=== PATIENT | male | born 1955 | race Caucasian/White ===

== ENCOUNTER 2016-11-23 16:43 | Observation (INO) | payer OTHER ==
[~2016-11-23] VITALS: Ht 182.9 cm; Wt 101.0 kg
[~2016-11-23 16:43] MED LIST: ASPI-496 PO; ASPI-515 PO; ASPI325T80 PO; ATOR80TA75 PO; ENOX100S5 SQ; ENOX80SY4 SQ; HYDR-3241 PO; METO25TA91 PO; NIFE60TA11 PO; OMEP20CA14 PO; WARF5TAB PO
[2016-11-23 18:25] VITALS: BP 129/82
[2016-11-23] MEDS: PLEASE ENTER HEIGHT AND WEIGHT MC SCH (18:30)
[2016-11-23 18:41] LABS: BLOOD UREA NITROGEN 19 mg/dL (7-18)
[2016-11-23] MEDS ORDERED: BUPIVACAINE/PF-EPI 0.5% 1:200K ONE (18:49)
[2016-11-23] MEDS ORDERED: THROMBIN 20,000 UNIT VIAL TP ONE ×2 (18:50→21:05)
[2016-11-23] MEDS ORDERED: HEPARIN 1,000 UNITS/ML, 30ML ONE (18:50)
[2016-11-23] MEDS ORDERED: PROTAMINE SULFATE 10 MG/ML, 5ML ONE (18:51)
[2016-11-23] MEDS ORDERED: BACITRACIN 50,000 UNIT ONE (18:51)
[2016-11-23] MEDS ORDERED: PAPAVERINE 30 MG/ML, 2ML ONE (18:52)
[2016-11-23] MEDS ORDERED: SODIUM CHLORIDE 0.9% 1,000 ML IV SCH (19:00)
[2016-11-23] MEDS ORDERED: FENTANYL PF 250 MCG/5ML ONE (20:08)
[2016-11-23] MEDS ORDERED: MIDAZOLAM 1 MG/ML, 2ML ONE (20:09)
[2016-11-23] MEDS ORDERED: ONDANSETRON 2MG/ML, 2ML ONE ×2 (20:12→22:58)
[2016-11-23] MEDS ORDERED: PROPOFOL 10 MG/ML, 20ML ONE (20:12)
[2016-11-23] MEDS ORDERED: ROCURONIUM 10 MG/ML ONE (20:12)
[2016-11-23] MEDS ORDERED: SUCCINYLCHOLINE 20 MG/ML, 10ML ONE (20:12)
[2016-11-23] MEDS ORDERED: DEXAMETHASONE 4 MG/ML, 1ML ONE (20:12)
[2016-11-23] MEDS ORDERED: CEFAZOLIN 1,000 MG ONE (20:12)
[2016-11-23] MEDS ORDERED: PHENYLEPHRINE 10 MG/ML ONE (20:12)
[2016-11-23] MEDS ORDERED: BUPIVACAINE/PF-EPI 0.5% 1:200K INFIL ONE (21:04)
[2016-11-23] MEDS ORDERED: BACITRACIN 50,000 UNIT IM ONE (21:05)
[2016-11-23] MEDS ORDERED: HEPARIN 1,000 UNITS/ML, 30ML IVPush ONE (21:07)
[2016-11-23] MEDS ORDERED: VISIPAQUE 270 MG/ML, 50ML BOTTLE IV ONE (21:47)
[2016-11-23] MEDS ORDERED: VISIPAQUE 270 MG/ML, 50ML BOTTLE ONE (22:17)
[2016-11-23] MEDS ORDERED: LACTATED RINGERS 1,000 ML IV SCH (22:27)
[2016-11-23] MEDS ORDERED: CEFAZOLIN PMX 2GM/50ML 50 ML IVPB SCH (22:30)
[2016-11-23] MEDS ORDERED: ACETAMINOPHEN 650 MG/20.3 ML UDC PO PRN (22:30)
[2016-11-23] MEDS ORDERED: PROMETHAZINE 25 MG/ML, 1ML IM PRN (22:30)
[2016-11-23] MEDS ORDERED: ONDANSETRON 2MG/ML, 2ML IVPush PRN ×2 (22:30→23:00)
[2016-11-23] MEDS ORDERED: MEPERIDINE/PF 25MG/0.5ML IVPush PRN (23:00)
[2016-11-23] MEDS ORDERED: FENTANYL PF 100 MCG/2ML IV PRN (23:00)
[2016-11-23] MEDS ORDERED: PROMETHAZINE 25 MG/ML, 1ML IV PRN (23:00)
[2016-11-23] MEDS ORDERED: OXYcodone 5 MG/5 ML ORAL.SOL UDC PO PRN (23:00)
[2016-11-23] MEDS ORDERED: MIDAZOLAM 1 MG/ML, 2ML IV PRN (23:00)
[2016-11-23] MEDS ORDERED: LABETALOL 5MG/ML, 20ML IV PRN (23:00)
[2016-11-23] MEDS ORDERED: HYDROmorphone 1 MG/ML, 1ML IV PRN (23:00)
[2016-11-23] MEDS ORDERED: ACETAMINOPHEN 325 MG TABLET PO PRN (23:00)
[2016-11-23] MEDS ORDERED: hydrALAzine 20 MG/ML, 1ML IV PRN (23:00)
[2016-11-23 23:31] VITALS: BP 114/74
[2016-11-23] MEDS: SODIUM BICARBONATE 8.4% 150 MEQ in DEXTROSE 5% 1,000 ML IV SCH (23:34)
[2016-11-24] MEDS: SODIUM BICARBONATE 8.4% 150 MEQ in DEXTROSE 5% 1,000 ML IV SCH
[2016-11-24] MEDS: PLEASE ENTER HEIGHT AND WEIGHT MC SCH (02:30)
[2016-11-24 03:47] VITALS: BP 94/63
[2016-11-24 07:29] VITALS: BP 121/65
[2016-11-24] MEDS ORDERED: ATORVASTATIN 80 MG TABLET PO SCH (09:00)
[2016-11-24] MEDS ORDERED: METOPROLOL SUCCINATE 25 MG TAB.ER.24H PO SCH (09:00)
[2016-11-24] MEDS ORDERED: niFEDipine ER 60 MG TABLET.ER PO SCH (09:00)
[2016-11-24] MEDS ORDERED: WARFARIN 7.5 MG TABLET PO-COUM SCH (18:00)
== END 2016-11-24 12:12 | disposition home or self-care (01) ==
LOC: 4NOR 16:43 → INTOOBSV 16:43 → DCLOUNGE 11-24 12:00
DX: I74.3 Embolism and thrombosis of arteries of the lower extremities (principal); I99.8 Other disorder of circulatory system; I13.0 Hypertensive heart and chronic kidney disease with heart failure and stage 1 through stage 4 chronic kidney disease, or unspecified chronic kidney disease; N18.3 Chronic kidney disease, stage 3 (moderate); I50.9 Heart failure, unspecified; I73.9 Peripheral vascular disease, unspecified; I25.10 Atherosclerotic heart disease of native coronary artery without angina pectoris; E78.5 Hyperlipidemia, unspecified; I25.2 Old myocardial infarction; Z98.890 Other specified postprocedural states
CPT/HCPCS: 35883; 36415; 75710; 80048; 85025; 85610; 86850; 86900; 93005; 96365; 96366; 96367; C1751; C1757; C1768; C1769; C1894; G0378; J0330; J0690; J1100; J1644; J2250; J2370; J2405; J2704; J2720; J3010; J7070; J7120; Q9966; J2440

== ENCOUNTER 2017-02-02 10:25 | Inpatient (IN) | payer OTHER ==
[~2017-02-02] VITALS: Ht 182.9 cm; Wt 105.8 kg
[2017-02-02] MEDS ORDERED: PLEASE ENTER HEIGHT AND WEIGHT MC SCH (14:30)
[2017-02-02 14:46] LABS: BLOOD UREA NITROGEN 16 mg/dL (7-18)
[2017-02-02 14:54] VITALS: BP 117/74
[2017-02-02] MEDS: D5%-0.45NACL+KCL 20MEQ 1,000 ML IV SCH ×2 (16:35→21:37)
[2017-02-02] MEDS ORDERED: HEPARIN 1,000 UNITS/ML, 10ML ONE ×2 (17:05→18:28)
[2017-02-02] MEDS ORDERED: PROTAMINE SULFATE 10 MG/ML, 5ML ONE (17:05)
[2017-02-02] MEDS ORDERED: THROMBIN 20,000 UNIT VIAL TP ONE (17:06)
[2017-02-02] MEDS ORDERED: BUPIVACAINE/PF-EPI 0.5% 1:200K ONE (17:06)
[2017-02-02] MEDS ORDERED: BACITRACIN 50,000 UNIT ONE (17:06)
[2017-02-02] MEDS ORDERED: LIDOCAINE 2%, 20ML ONE (17:56)
[2017-02-02] MEDS ORDERED: MIDAZOLAM 1 MG/ML, 5ML ONE (18:28)
[2017-02-02] MEDS ORDERED: PROTAMINE SULFATE 10 MG/ML, 25ML ONE (18:28)
[2017-02-02] MEDS ORDERED: FLUMAZENIL 0.1 MG/1 ML, 5ML ONE (18:28)
[2017-02-02] MEDS ORDERED: NALOXONE 1 MG/ML, 2ML ONE (18:28)
[2017-02-02] MEDS ORDERED: FENTANYL PF 100 MCG/2ML ONE (18:28)
[2017-02-02] MEDS ORDERED: NITROGLYCERIN 5 MG/ML, 10ML ONE (18:28)
[2017-02-02] MEDS ORDERED: ALTEPLASE 10 MG in SODIUM CHLORIDE 0.9% 90 ML IV ONE (18:50)
[2017-02-02] MEDS ORDERED: VISIPAQUE 270 MG/ML, 50ML BOTTLE ONE (19:15)
[2017-02-02] MEDS ORDERED: HEPARIN 25,000 UNITS/500ML PMX 500 ML ONE ×2 (20:06→20:18)
[2017-02-02] MEDS ORDERED: POTASSIUM CHLORIDE 20 MEQ in LACTATED RINGERS 1,000 ML IV SCH (20:37)
[2017-02-02] MEDS ORDERED: ONDANSETRON 2MG/ML, 2ML IV PRN (21:00)
[2017-02-02] MEDS: ATORVASTATIN 80 MG TABLET PO SCH ×2 (21:00→21:36)
[2017-02-02] MEDS ORDERED: TRIAZOLAM 0.125 MG TABLET PO PRN (21:00)
[2017-02-02] MEDS ORDERED: HEPARIN 25,000 UNITS/500ML PMX 500 ML IV SCH (21:00)
[2017-02-03] MEDS: morphine SULFATE 10 MG/ML, 1ML IVPush PRN ×2 (04:24→05:07)
[2017-02-03 04:26] VITALS: BP 166/88
[2017-02-03] MEDS: HYDROcodone/APAP 5/325 TABLET PO PRN (04:57)
[2017-02-03] MEDS: METOPROLOL SUCCINATE 25 MG TAB.ER.24H PO SCH (04:57)
[2017-02-03] MEDS ORDERED: ALTEPLASE 10 MG in SODIUM CHLORIDE 0.9% 90 ML IV SCH ×4 (05:30)
[2017-02-03] MEDS: D5%-0.45NACL+KCL 20MEQ 1,000 ML IV SCH (06:04)
[2017-02-03] MEDS ORDERED: NIFEDIPINE 60 MG PO SCH (09:00)
[2017-02-03] MEDS ORDERED: METOPROLOL SUCCINATE 25 MG TAB.ER.24H PO SCH (09:00)
[2017-02-03] MEDS ORDERED: ATORVASTATIN 80 MG TABLET PO SCH (09:00)
[2017-02-03] MEDS: niFEDipine ER 30 MG TABLET.ER PO SCH (09:41)
[2017-02-03 10:04] LABS: BLOOD UREA NITROGEN 19 mg/dL (7-18)
[2017-02-03] MEDS: SODIUM ACETATE IV SCH ×2 (10:38→20:01)
[2017-02-03] MEDS: DEXTROSE 5% IV SCH ×2 (10:38→20:01)
[2017-02-03] MEDS ORDERED: PROTAMINE SULFATE 10 MG/ML, 25ML ONE (15:15)
[2017-02-03] MEDS ORDERED: MIDAZOLAM 1 MG/ML, 5ML ONE (15:15)
[2017-02-03] MEDS ORDERED: FENTANYL PF 100 MCG/2ML ONE ×2 (15:16→15:17)
[2017-02-03] MEDS ORDERED: HEPARIN 1,000 UNITS/ML, 10ML ONE (15:16)
[2017-02-03] MEDS ORDERED: FLUMAZENIL 0.1 MG/1 ML, 5ML ONE (15:16)
[2017-02-03] MEDS ORDERED: NALOXONE 1 MG/ML, 2ML ONE (15:16)
[2017-02-03] MEDS ORDERED: NITROGLYCERIN 5 MG/ML, 10ML ONE (15:16)
[2017-02-03] MEDS ORDERED: LIDOCAINE 2%, 20ML ONE (16:49)
[2017-02-03] MEDS ORDERED: HEPARIN 25,000 UNITS/500ML PMX 500 ML IV SCH (18:38)
[2017-02-03] MEDS ORDERED: DEXTROSE 5% IV SCH (18:40)
[2017-02-03] MEDS ORDERED: SODIUM ACETATE IV SCH (18:40)
[2017-02-03] MEDS: ATORVASTATIN 80 MG TABLET PO SCH (20:44)
[2017-02-04 04:00] VITALS: BP 127/64
[2017-02-04 04:51] LABS: BLOOD UREA NITROGEN 14 mg/dL (7-18)
[2017-02-04] MEDS: METOPROLOL SUCCINATE 25 MG TAB.ER.24H PO SCH (06:00)
[2017-02-04] MEDS: niFEDipine ER 30 MG TABLET.ER PO SCH (08:28)
[2017-02-04 14:15] VITALS: BP 107/66
[2017-02-04] MEDS ORDERED: HEPARIN 25,000 UNITS/500ML PMX 500 ML IV SCH (18:38)
[2017-02-04] MEDS: HEPARIN 25,000 UNITS/500ML PMX 500 ML IV SCH (19:14)
[2017-02-04] MEDS: ATORVASTATIN 80 MG TABLET PO SCH (21:23)
[2017-02-04 21:35] VITALS: BP 108/65
[2017-02-05 04:00] VITALS: BP 118/70
[2017-02-05] MEDS: HEPARIN 25,000 UNITS/500ML PMX 500 ML IV SCH (04:28)
[2017-02-05] MEDS: METOPROLOL SUCCINATE 25 MG TAB.ER.24H PO SCH (06:13)
[2017-02-05 06:45] VITALS: BP 117/65
[2017-02-05] MEDS ORDERED: HEPARIN 25,000 UNITS/500ML PMX 500 ML IV PRN ×2 (08:30→09:00)
[2017-02-05] MEDS: niFEDipine ER 30 MG TABLET.ER PO SCH (10:05)
[2017-02-05 13:40] VITALS: BP 111/63
[2017-02-05] MEDS: HEPARIN 5,000 UNITS/ML, 1ML IV PRN (17:58)
[2017-02-05 19:20] VITALS: BP 107/59
[2017-02-05] MEDS: ATORVASTATIN 80 MG TABLET PO SCH (20:23)
[2017-02-06 00:16] VITALS: BP 124/72
[2017-02-06] MEDS: HEPARIN 5,000 UNITS/ML, 1ML IV PRN (01:43)
[2017-02-06] MEDS: METOPROLOL SUCCINATE 25 MG TAB.ER.24H PO SCH (04:43)
[2017-02-06 07:07] VITALS: BP 125/67
[2017-02-06] MEDS ORDERED: CEFAZOLIN 1,000 MG ONE ×2 (07:24)
[2017-02-06] MEDS ORDERED: ROCURONIUM 10 MG/ML ONE (07:24)
[2017-02-06] MEDS ORDERED: DEXAMETHASONE 4 MG/ML, 1ML ONE (07:24)
[2017-02-06] MEDS ORDERED: ONDANSETRON 2MG/ML, 2ML ONE (07:24)
[2017-02-06] MEDS ORDERED: PROPOFOL 10 MG/ML, 20ML ONE (07:24)
[2017-02-06] MEDS ORDERED: PHENYLEPHRINE 10 MG/ML ONE (07:24)
[2017-02-06] MEDS ORDERED: CALCIUM CHLORIDE 10%, 10ML SYR ONE (07:24)
[2017-02-06] MEDS ORDERED: PROPOFOL 10 MG/ML, 50ML ONE (07:24)
[2017-02-06] MEDS ORDERED: KETAMINE 10 MG/ML, 20ML ONE (07:28)
[2017-02-06] MEDS: niFEDipine ER 30 MG TABLET.ER PO SCH (08:26)
[2017-02-06] MEDS ORDERED: HEPARIN 5,000 UNITS/ML, 1ML ONE (09:04)
[2017-02-06] MEDS ORDERED: THROMBIN 20,000 UNIT VIAL TP ONE (09:05)
[2017-02-06] MEDS ORDERED: BACITRACIN 50,000 UNIT ONE (09:05)
[2017-02-06] MEDS ORDERED: BUPIVACAINE/PF-EPI 0.5% 1:200K ONE (09:05)
[2017-02-06] MEDS ORDERED: PROTAMINE SULFATE 10 MG/ML, 5ML ONE (09:05)
[2017-02-06] MEDS ORDERED: MIDAZOLAM 1 MG/ML, 2ML ONE (09:08)
[2017-02-06] MEDS ORDERED: FENTANYL PF 250 MCG/5ML ONE (09:08)
[2017-02-06] MEDS ORDERED: SCOPOLAMINE PATCH, 1.5MG PATCH.TD72 TD ONE (09:16)
[2017-02-06] MEDS ORDERED: REMIFENTANIL 2 MG ONE (09:22)
[2017-02-06] MEDS ORDERED: HEPARIN 1,000 UNITS/ML, 10ML ONE (10:17)
[2017-02-06] MEDS ORDERED: SUFentanil 50 MCG/ML, 1ML ONE (13:17)
[2017-02-06] MEDS ORDERED: PROMETHAZINE 25 MG/ML, 1ML IV PRN (13:30)
[2017-02-06] MEDS ORDERED: HYDROmorphone 1 MG/ML, 1ML IV PRN (13:30)
[2017-02-06] MEDS ORDERED: LABETALOL 5MG/ML, 20ML IV PRN (13:30)
[2017-02-06] MEDS ORDERED: FENTANYL PF 100 MCG/2ML IV PRN (13:30)
[2017-02-06] MEDS ORDERED: hydrALAzine 20 MG/ML, 1ML IV PRN (13:30)
[2017-02-06] MEDS ORDERED: OXYcodone 5 MG/5 ML ORAL.SOL UDC PO PRN (13:30)
[2017-02-06] MEDS ORDERED: ACETAMINOPHEN 325 MG TABLET PO PRN (13:30)
[2017-02-06] MEDS ORDERED: MIDAZOLAM 1 MG/ML, 2ML IV PRN (13:30)
[2017-02-06] MEDS ORDERED: ONDANSETRON 2MG/ML, 2ML IVPush PRN (13:30)
[2017-02-06] MEDS ORDERED: MEPERIDINE/PF 25MG/0.5ML IVPush PRN (13:30)
[2017-02-06] MEDS ORDERED: VISIPAQUE 270 MG/ML, 50ML BOTTLE ONE (13:52)
[2017-02-06] MEDS: HEPARIN 25,000 UNITS/500ML PMX 500 ML IV PRN (16:44)
[2017-02-06 19:08] VITALS: BP 117/69
[2017-02-06] MEDS: ATORVASTATIN 80 MG TABLET PO SCH (21:49)
[2017-02-06] MEDS: LACTATED RINGERS 1,000 ML IV SCH (21:52)
[2017-02-06 23:15] VITALS: BP 127/61
[2017-02-07 04:12] VITALS: BP 107/54
[2017-02-07 05:27] LABS: BLOOD UREA NITROGEN 17 mg/dL (7-18)
[2017-02-07] MEDS: METOPROLOL SUCCINATE 25 MG TAB.ER.24H PO SCH (06:17)
[2017-02-07] MEDS: ASPIRIN 325 MG TABLET EC PO SCH (06:17)
[2017-02-07 07:15] VITALS: BP 137/69
[2017-02-07] MEDS: niFEDipine ER 30 MG TABLET.ER PO SCH (08:07)
[2017-02-07] MEDS: LACTATED RINGERS 1,000 ML IV SCH ×2 (08:08→09:51)
[2017-02-07] MEDS: HYDROcodone/APAP 5/325 TABLET PO PRN ×3 (08:16→21:39)
[2017-02-07 13:51] VITALS: BP 135/67
[2017-02-07 16:15] VITALS: BP 127/68
[2017-02-07 18:34] VITALS: BP 111/57
[2017-02-07] MEDS: ATORVASTATIN 80 MG TABLET PO SCH (21:39)
[2017-02-08] VITALS (7 sets, daily range): BP systolic 109–137; BP diastolic 57–72
[2017-02-08] MEDS: HYDROcodone/APAP 5/325 TABLET PO PRN ×3 (02:30→21:00)
[2017-02-08] MEDS: LACTATED RINGERS 1,000 ML IV SCH ×3 (04:00→22:01)
[2017-02-08] MEDS: ASPIRIN 325 MG TABLET EC PO SCH (05:50)
[2017-02-08] MEDS: METOPROLOL SUCCINATE 25 MG TAB.ER.24H PO SCH (05:50)
[2017-02-08] MEDS: niFEDipine ER 30 MG TABLET.ER PO SCH (09:32)
[2017-02-08] MEDS: HEPARIN 25,000 UNITS/500ML PMX 500 ML IV PRN (12:32)
[2017-02-08] MEDS: ATORVASTATIN 80 MG TABLET PO SCH (20:59)
[2017-02-09 01:00] VITALS: BP 116/62
[2017-02-09 04:30] VITALS: BP 137/73
[2017-02-09] MEDS: METOPROLOL SUCCINATE 25 MG TAB.ER.24H PO SCH (05:28)
[2017-02-09] MEDS: ASPIRIN 325 MG TABLET EC PO SCH (05:28)
[2017-02-09 05:35] LABS: BLOOD UREA NITROGEN 16 mg/dL (7-18)
[2017-02-09 07:25] VITALS: BP 138/76
[2017-02-09] MEDS ORDERED: APIXABAN 2.5 MG TABLET PO SCH (09:00)
[2017-02-09] MEDS: niFEDipine ER 30 MG TABLET.ER PO SCH (09:29)
[2017-02-09] MEDS: LACTATED RINGERS 1,000 ML IV SCH (09:34)
[2017-02-09 11:05] VITALS: BP 152/87
[2017-02-09] MEDS ORDERED: APIX2.5T PO (11:46)
== END 2017-02-09 12:16 | disposition home or self-care (01) | DRG 253 ==
LOC: 4NOR 11:41 → INTOOBSV 11:41 → OBSVTOIN 18:50 → CCU 19:54 → 4NOR 02-04 11:54
PROVIDERS: ADMIT Surgery; ATTEND Surgery
PROC: B41G1ZZ Fluoroscopy of Left Lower Extremity Arteries using Low Osmolar Contrast (ICD-10-PCS; 2017-02-02)
PROC: B41F1ZZ Fluoroscopy of Right Lower Extremity Arteries using Low Osmolar Contrast (ICD-10-PCS; 2017-02-02)
PROC: 3E05317 Introduction of Other Thrombolytic into Peripheral Artery, Percutaneous Approach (ICD-10-PCS; 2017-02-02)
PROC: 04HL33Z Insertion of Infusion Device into Left Femoral Artery, Percutaneous Approach (ICD-10-PCS; 2017-02-02)
PROC: 04HK33Z Insertion of Infusion Device into Right Femoral Artery, Percutaneous Approach (ICD-10-PCS; 2017-02-02)
PROC: B41G1ZZ Fluoroscopy of Left Lower Extremity Arteries using Low Osmolar Contrast (ICD-10-PCS; 2017-02-03)
PROC: B41F1ZZ Fluoroscopy of Right Lower Extremity Arteries using Low Osmolar Contrast (ICD-10-PCS; 2017-02-03)
PROC: 06BQ0ZZ Excision of Left Saphenous Vein, Open Approach (ICD-10-PCS; 2017-02-06)
PROC: 041L09L Bypass Left Femoral Artery to Popliteal Artery with Autologous Venous Tissue, Open Approach (ICD-10-PCS; principal; 2017-02-06 09:00)
DX: I74.3 Embolism and thrombosis of arteries of the lower extremities (principal); I74.5 Embolism and thrombosis of iliac artery; I77.1 Stricture of artery; I10 Essential (primary) hypertension; J44.9 Chronic obstructive pulmonary disease, unspecified
CPT/HCPCS: 36415; 37211; 37214; 75710; 76937; 80048; 82040; 82330; 82565; 82803; 82947; 84132; 84295; 84520; 85014; 85025; 85384; 85520; 85610; 85730; 86850; 86900; 86923; 87081; 93005; 93971; 99156; 99157; C1894; G0378; J0690; J1100; J1644; J2250; J2270; J2405; J2704; J2720; J2997; J3010; J3480; J3490; J7070; Q9966; C1751; C1769; J2310; J2370; J7120

== ENCOUNTER → 2018-09-02 | Outpatient (CLI) | payer OTHER ==
[~2018-09-02] MED LIST changes: +AMLO2.5T5 PO; +APIX2.5T PO; +ATOR-2 PO; -ATOR80TA75 PO
[2018-09-02 09:41] LABS: BASOPHILS # (AUTO) 0.11 x10^3/uL (0-0.1); BASOPHILS % (AUTO) 1 % (0-1); EOSINOPHILS # (AUTO) 0.24 x10^3/uL (0-0.4); EOSINOPHILS % (AUTO) 2 % (1-7); LYMPHOCYTES % (AUTO) 17 % (22-44); MD NO; MEAN CORPUSCULAR HEMOGLOBIN 29.2 pg (27.5-34.5); MEAN CORPUSCULAR HGB CONC 33.4 g/dL (33.2-36.2); MEAN CORPUSCULAR VOLUME 87.2 fL (81-97); MEAN PLATELET VOLUME 6.1 fL (7.4-10.4); MONOCYTES # (AUTO) 0.83 x10^3/uL (0.2-0.8); MONOCYTES % (AUTO) 6 % (2-9); NEUTROPHILS # (AUTO) 10.02 x10^3/uL (1.8-6.8); NEUTROPHILS % (AUTO) 74 % (42-75); PLATELET COUNT 280 x10^3/uL (130-400); RED BLOOD COUNT 5.32 x10^6/uL (4.38-5.82); RED CELL DISTRIBUTION WIDTH 14.1 % (9.4-14.8)
[2018-09-02 09:52] LABS: ALBUMIN 3.8 g/dL (3.4-5.0); ANION GAP 9 mmol/L (5-15); CALCIUM 8.4 mg/dL (8.5-10.1); CHLORIDE 110 mmol/L (98-107)
[2018-09-02 09:55] LABS: ALANINE AMINOTRANSFERASE 31 U/L (12-78); ALKALINE PHOSPHATASE 123 U/L (45-117); BILIRUBIN,TOTAL 0.6 mg/dL (0.2-1.0); CREATININE 1.68 mg/dL (0.7-1.3); TOTAL PROTEIN 7.4 g/dL (6.4-8.2)
== END | disposition home or self-care (01) ==
LOC: STAR 08:51
DX: Z01.810 Encounter for preprocedural cardiovascular examination (principal); Z87.891 Personal history of nicotine dependence; I10 Essential (primary) hypertension
CPT/HCPCS: 36415; 71046; 80053; 85025; 93005

== ENCOUNTER 2018-09-05 13:42 | Outpatient (CLI) | payer OTHER ==
[2018-09-05 14:00] LABS: MICROSCOPIC NOT IND
[2018-09-05 14:06] LABS: CULTURE INDICATED? NO
== END 2018-09-05 23:59 | disposition home or self-care (01) ==
LOC: STAR 13:42
DX: Z01.818 Encounter for other preprocedural examination (principal)
CPT/HCPCS: 81003

== ENCOUNTER 2018-09-09 10:18 | Inpatient (IN) | payer OTHER ==
[~2018-09-09] VITALS: Ht 182.9 cm; Wt 102.2 kg
[2018-09-09] MEDS ORDERED: LACTATED RINGERS 1,000 ML IV SCH (10:33)
[2018-09-09] MEDS ORDERED: HEPARIN 5,000 UNITS/ML, 1ML ONE (12:16)
[2018-09-09] MEDS ORDERED: PAPAVERINE 30 MG/ML, 2ML ONE (12:16)
[2018-09-09] MEDS ORDERED: BUPIVACAINE/PF-EPI 0.5% 1:200K ONE (12:16)
[2018-09-09] MEDS ORDERED: HEPARIN 1,000 UNITS/ML, 10ML ONE (12:17)
[2018-09-09] MEDS ORDERED: THROMBIN 20,000 UNIT VIAL TP ONE (12:17)
[2018-09-09] MEDS ORDERED: PROTAMINE SULFATE 10 MG/ML, 5ML ONE (12:17)
[2018-09-09] MEDS ORDERED: BACITRACIN 50,000 UNIT ONE (12:18)
[2018-09-09] MEDS ORDERED: HYDROmorphone 2 MG/ML, 1ML ONE (13:28)
[2018-09-09] MEDS ORDERED: MIDAZOLAM 1 MG/ML, 2ML ONE (13:28)
[2018-09-09] MEDS ORDERED: GLYCOPYRROLATE 0.2MG/1ML, 5ML ONE (13:48)
[2018-09-09] MEDS ORDERED: NEOSTIGMINE 1 MG/ML, 10ML ONE (13:48)
[2018-09-09] MEDS ORDERED: ACETAMINOPHEN 325 MG TABLET PO PRN (15:30)
[2018-09-09] MEDS ORDERED: ALBUTEROL/IPRATROPIUM 2.5MG/0.5MG, 3 ML NPPB PRN (15:30)
[2018-09-09] MEDS ORDERED: MEPERIDINE/PF 25MG/0.5ML IVPush PRN (15:30)
[2018-09-09] MEDS ORDERED: OXYcodone 5 MG/5 ML ORAL.SOL UDC PO PRN (15:30)
[2018-09-09] MEDS ORDERED: HALOPERIDOL 5 MG/ML IV PRN (15:30)
[2018-09-09] MEDS ORDERED: hydrALAzine 20 MG/ML, 1ML IV PRN (15:30)
[2018-09-09] MEDS ORDERED: PROMETHAZINE 25 MG/ML, 1ML IV PRN (15:30)
[2018-09-09] MEDS ORDERED: HYDROmorphone 2 MG/ML, 1ML IVPush PRN (15:30)
[2018-09-09] MEDS ORDERED: OMNIPAQUE 350 MG/ML, 50 ML BOTTLE ONE (16:02)
[2018-09-09] MEDS ORDERED: ROCURONIUM 10MG/ML,5ML ONE (17:17)
[2018-09-09] MEDS ORDERED: DEXAMETHASONE 4 MG/ML, 1ML ONE (17:17)
[2018-09-09] MEDS ORDERED: ALBUTEROL HFA 90 MCG/SPRAY ONE (17:17)
[2018-09-09] MEDS ORDERED: PROPOFOL 10 MG/ML, 20ML ONE (17:17)
[2018-09-09] MEDS ORDERED: ONDANSETRON 2MG/ML, 2ML ONE (17:17)
[2018-09-09] MEDS ORDERED: CEFAZOLIN 1,000 MG ONE (17:17)
[2018-09-09] MEDS ORDERED: MEPERIDINE/PF 100 MG/ML ONE (17:30)
[2018-09-09] MEDS ORDERED: ALBUTEROL/IPRATROPIUM 2.5MG/0.5MG, 3 ML ONE (18:16)
[2018-09-09] MEDS ORDERED: ACETAMINOPHEN 650 MG/20.3 ML UDC PO PRN (18:30)
[2018-09-09] MEDS ORDERED: ONDANSETRON 2MG/ML, 2ML IVPush PRN (18:30)
[2018-09-09] MEDS ORDERED: PROMETHAZINE 25 MG/ML, 1ML IM PRN (18:30)
[2018-09-09 20:00] VITALS: BP 138/76
[2018-09-09] MEDS ORDERED: OXYcodone/APAP 5/325MG TABLET PO PRN (21:00)
[2018-09-09] MEDS: OXYcodone IR 5MG TABLET PO PRN ×2 (21:13→22:35)
[2018-09-09] MEDS: CEFAZOLIN PMX 2GM/50ML 50 ML IVPB SCH (22:35)
[2018-09-09] MEDS: D5%-LACTATED RINGERS 1,000 ML IV SCH (22:35)
[2018-09-10 00:15] VITALS: BP 105/69
[2018-09-10] MEDS: OXYcodone IR 5MG TABLET PO PRN ×4 (03:10→19:14)
[2018-09-10 05:08] LABS: ALBUMIN 2.9 g/dL (3.4-5.0); ANION GAP 5 mmol/L (5-15); BASOPHILS # (AUTO) 0.02 x10^3/uL (0-0.1); BASOPHILS % (AUTO) 0 % (0-1); CALCIUM 7.4 mg/dL (8.5-10.1); CHLORIDE 110 mmol/L (98-107); CREATININE 1.74 mg/dL (0.7-1.3); EOSINOPHILS # (AUTO) 0.02 x10^3/uL (0-0.4); EOSINOPHILS % (AUTO) 0 % (1-7); LYMPHOCYTES # (AUTO) 1.33 x10^3/uL (1-3.4); LYMPHOCYTES % (AUTO) 8 % (22-44); MD NO; MEAN CORPUSCULAR HEMOGLOBIN 29.3 pg (27.5-34.5); MEAN CORPUSCULAR HGB CONC 33.5 g/dL (33.2-36.2); MEAN CORPUSCULAR VOLUME 87.6 fL (81-97); MEAN PLATELET VOLUME 6.8 fL (7.4-10.4); MONOCYTES % (AUTO) 5 % (2-9); NEUTROPHILS # (AUTO) 15.17 x10^3/uL (1.8-6.8); NEUTROPHILS % (AUTO) 87 % (42-75); PLATELET COUNT 165 x10^3/uL (130-400); RED BLOOD COUNT 4.09 x10^6/uL (4.38-5.82)
[2018-09-10] MEDS: CEFAZOLIN PMX 2GM/50ML 50 ML IVPB SCH (05:46)
[2018-09-10] MEDS: ASPIRIN 81 MG TABLET EC PO SCH (05:47)
[2018-09-10] MEDS: D5%-LACTATED RINGERS 1,000 ML IV SCH ×2 (08:00→18:00)
[2018-09-10] MEDS: METOPROLOL SUCCINATE 25 MG TAB.ER.24H PO SCH (08:54)
[2018-09-10] MEDS: AMLODIPINE 2.5 MG TABLET PO SCH (08:54)
[2018-09-10] MEDS: ATORVASTATIN 80 MG TABLET PO SCH (08:54)
[2018-09-10] MEDS ORDERED: APIXABAN 2.5 MG TABLET PO SCH (09:00)
[2018-09-10] MEDS ORDERED: ENOXAPARIN 40 MG/0.4 ML SQ SCH (09:00)
[2018-09-10 09:01] VITALS: BP 109/61
[2018-09-10 13:52] VITALS: BP 106/61
[2018-09-10 19:50] VITALS: BP 114/73
[2018-09-10] MEDS: APIXABAN 5 MG TABLET PO SCH (20:12)
[2018-09-10] MEDS ORDERED: APIXABAN 5 MG TABLET PO SCH (21:00)
[2018-09-11] MEDS: D5%-LACTATED RINGERS 1,000 ML IV SCH ×2 (01:20→14:00)
[2018-09-11 01:59] VITALS: BP 105/58
[2018-09-11 04:53] LABS: BASOPHILS # (AUTO) 0.02 x10^3/uL (0-0.1); BASOPHILS % (AUTO) 0 % (0-1); EOSINOPHILS # (AUTO) 0.37 x10^3/uL (0-0.4); EOSINOPHILS % (AUTO) 3 % (1-7); LYMPHOCYTES # (AUTO) 1.56 x10^3/uL (1-3.4); LYMPHOCYTES % (AUTO) 11 % (22-44); MD NO; MEAN CORPUSCULAR HEMOGLOBIN 29.5 pg (27.5-34.5); MEAN CORPUSCULAR HGB CONC 33.4 g/dL (33.2-36.2); MEAN CORPUSCULAR VOLUME 88.2 fL (81-97); MEAN PLATELET VOLUME 6.7 fL (7.4-10.4); MONOCYTES # (AUTO) 0.88 x10^3/uL (0.2-0.8); MONOCYTES % (AUTO) 6 % (2-9); NEUTROPHILS # (AUTO) 11.42 x10^3/uL (1.8-6.8); NEUTROPHILS % (AUTO) 80 % (42-75); PLATELET COUNT 164 x10^3/uL (130-400); RED BLOOD COUNT 4.02 x10^6/uL (4.38-5.82); RED CELL DISTRIBUTION WIDTH 13.6 % (9.4-14.8)
[2018-09-11] MEDS: ASPIRIN 81 MG TABLET EC PO SCH (06:27)
[2018-09-11] MEDS: OXYcodone IR 5MG TABLET PO PRN ×3 (06:27→17:30)
[2018-09-11 07:10] VITALS: BP 116/62
[2018-09-11] MEDS: AMLODIPINE 2.5 MG TABLET PO SCH (08:25)
[2018-09-11] MEDS: ATORVASTATIN 80 MG TABLET PO SCH (08:25)
[2018-09-11] MEDS: METOPROLOL SUCCINATE 25 MG TAB.ER.24H PO SCH (08:25)
[2018-09-11] MEDS: APIXABAN 5 MG TABLET PO SCH (08:26)
[2018-09-11 13:25] VITALS: BP 115/72
[2018-09-11] MEDS ORDERED: OXYC5TAB3 PO (16:45)
== END 2018-09-11 18:00 | disposition home or self-care (01) | DRG 271 ==
LOC: ORIP 10:18 → 4NOR 19:30
PROC: 04CL3ZZ Extirpation of Matter from Left Femoral Artery, Percutaneous Approach (ICD-10-PCS; 2018-09-09)
PROC: 047C3ZZ Dilation of Right Common Iliac Artery, Percutaneous Approach (ICD-10-PCS; 2018-09-09)
PROC: 047H3ZZ Dilation of Right External Iliac Artery, Percutaneous Approach (ICD-10-PCS; 2018-09-09)
PROC: 041 Lower Arteries, Bypass (ICD-10-PCS; 2018-09-09)
PROC: 06BP4ZZ Excision of Right Saphenous Vein, Percutaneous Endoscopic Approach (ICD-10-PCS; 2018-09-09)
PROC: B41J1ZZ Fluoroscopy of Other Lower Arteries using Low Osmolar Contrast (ICD-10-PCS; 2018-09-09)
PROC: 04CK3ZZ Extirpation of Matter from Right Femoral Artery, Percutaneous Approach (ICD-10-PCS; 2018-09-09)
PROC: B41F1ZZ Fluoroscopy of Right Lower Extremity Arteries using Low Osmolar Contrast (ICD-10-PCS; principal; 2018-09-09 13:30)
DX: I70.223 Atherosclerosis of native arteries of extremities with rest pain, bilateral legs (principal); I74.5 Embolism and thrombosis of iliac artery; I11.0 Hypertensive heart disease with heart failure; E66.9 Obesity, unspecified; E78.5 Hyperlipidemia, unspecified; F17.210 Nicotine dependence, cigarettes, uncomplicated; I25.10 Atherosclerotic heart disease of native coronary artery without angina pectoris; T14.8XXA Other injury of unspecified body region, initial encounter; X58.XXXA Exposure to other specified factors, initial encounter; Y93.9 Activity, unspecified; Y92.89 Other specified places as the place of occurrence of the external cause; Y99.8 Other external cause status; Z68.30 Body mass index [BMI] 30.0-30.9, adult
CPT/HCPCS: 36415; J3490; J7121; J7620; 71046; 75710; 80048; 82040; 85025; 86850; 86900; G0378; J0690; J1100; J1170; J1644; J2250; J2405; J2704; J2710; J2720; Q9967; C1757; J2175; J2440

== ENCOUNTER → 2018-10-28 | Outpatient (CLI) | payer OTHER ==
[~2018-10-28] MED LIST changes: +OXYC5TAB3 PO
== END | disposition home or self-care (01) ==
LOC: CVU 07:16
PROVIDERS: ATTEND Physician Assistant Surgical
DX: I70.212 Atherosclerosis of native arteries of extremities with intermittent claudication, left leg (principal); I74.5 Embolism and thrombosis of iliac artery; E78.5 Hyperlipidemia, unspecified; Z87.891 Personal history of nicotine dependence
CPT/HCPCS: 93922; 93926; 93978